=== PATIENT | female | born 2000 | race Caucasian/White ===

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

== ENCOUNTER → 2023-05-25 | Outpatient (CLI) | payer OTHER ==
[~2023-05-25] MED LIST: FLON1SPR; ZYRT10CA PO
== END ==
LOC: M PLAIMG 14:01
PROVIDERS: ATTEND Nurse Practitioner Adult Health
DX: R91.8 Other nonspecific abnormal finding of lung field (principal); J47.9 Bronchiectasis, uncomplicated

== ENCOUNTER → 2023-07-15 | Outpatient (REF) | payer OTHER, BC | LOC: M LAB REF 17:01 | PROVIDERS: ATTEND Nurse Practitioner Adult Health | DX: R05.9 Cough, unspecified (principal) ==